=== PATIENT | female | born 1995 | race African-American/Black ===

== ENCOUNTER 2017-02-02 04:06 | Inpatient (IN) | payer OTHER ==
--- NOTE | 2017-02-01 23:01 | History & Physical ---
General Information and HPI MD Statement: I have seen and personally examined DARON SANTIAGO and documented this H&P. The patient is a 22 year old female at [39] weeks and [] days gestation who presented with a chief complaint of [repeat c/s]. Source of Information: patient Exam Limitations: no limitations History of Present Illness: 22 year old @ 39 weeks presents for repeat c/s. Pt has a prior h/o c/s x 3 and desires repeat. remarkable for late care. First visit to office was a 37 weeks. She stated that received minimal care in [place] prior to this. She has a h/o asthma as a child and uses albuterol as needed. She is anemic. She declines BTL. 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 History medical practice administrator History : 5 Para: 3 Last Menstrual Period: unknown Estimated Delivery Date: 02/10/16 Past medical practice administrator History: previous c/s x 3 Past Pregnancies Past Pregnancies: Date of Delivery: see record Medical History Neurological: NONE EENT: NONE Cardiovascular: NONE Respiratory: asthma Gastrointestinal: NONE Hepatic: NONE Renal: NONE Musculoskeletal: NONE Psychiatric: anxiety Endocrine: NONE Blood Disorders: NONE (??), IMMUNE DEFICIENCY Cancer(s): NONE IMPROVEMENT MANAGER/Reproductive: NONE Other Medical Hx: tobacco use THC use obesity Surgical History Pertinent Surgical History: Review of Systems Review of Systems Constitutional: Reports: no symptoms. Cardiovascular: Reports: no symptoms. Respiratory: Reports: no symptoms. GI: Reports: no symptoms. Genitourinary: Reports: see HPI. Musculoskeletal: Reports: no symptoms. Skin: Reports: no symptoms. Neurological/Psychological: Reports: no symptoms. Hematologic/Endocrine: Reports: no symptoms. Immunologic/Allergic: Reports: no symptoms. Exam & Diagnostic Data Obstetric Exam Wgt Gained During : unknown Pelvimetry: unknown Dilation (cm): 0 Effacement (%): 0 Station: 0 Membranes: intact Fluid: unknown Fundal Height (cm): 40 Multiple Gestation? No Contractions: na Infant #1 - FHR Baseline: 120 Category: 1 Estimated Weight: 7.2 Presentation: vertex Patient for Induction? No Physical Exam General Appearance Alert, Oriented X3, Cooperative, No Acute Distress Skin No Rashes, No Breakdown, No Significant Lesion HEENT Atraumatic, PERRLA, EOMI, Mucous Membr. moist/pink Neck Supple, No JVD, No thryomegaly, +2 Carotid Pulse wo Bruit, No LAD Cardiovascular Regular Rate, Normal S1, Normal S2, No Murmurs Lungs Clear to Auscultation, Normal Air Movement Abdomen Normal Bowel Sounds, Soft, No Tenderness, No Hepatospenomegaly, No Masses, gravid Neurological Normal Gait, Normal Speech, Strength at 5/5 X4 Ext, Normal Tone, Sensation Intact, Cranial Nerves 3-12 NL, Reflexes 2+ Extremities No Clubbing, No Edema Labs Blood Type & Rh: A pos Antibody Screen: neg Hct/Hgb & Platelets #1: 9.4, 30.4, 305 Hct/Hgb & Platelets #2: na Rubella: imm VDRL #1: neg VDRL #2: na HbsAg: neg HIV #1: neg HIV #2 na 1 Hr PG: na Group B Strep: pos Initial Ultrasound: 37.5w, 41%, 5'15". post plac, limited anatomy unremarkable Anatomy Ultrasound: na Genetic Testing: na Assessment/Plan Assessment/Plan: 22 year old female @ 39 weeks with h/o prior cs x 3. plan repeat c/s. r/b/a including risk of bleeding, infection, injury to other organs, hysterectomy, need for additional procedures should complication occur, TTN. Questions answered and desires to proceed. Baseline hgb a little low. Will have 2 units on hold. Tobacco and marijuana cessation discussed. SS consult as needed. As Ranked By This Provider Problem List: 1. 2. History of - section Core Measures/Miscellaneous Venous Thromboembolism VTE Risk Factors: / VTE Contraindications: No Contraindications VTE Diagnosis: No Beta Amrita Is Beta Amrita a Home Med? No Antibiotics Is Patient on Antibiotics? No Attending MD Review Statement Attending Statement Attending MD Statement: examined this patient, discussed with family
[~2017-02-02] VITALS: Ht 170.2 cm; Wt 122.9 kg
[~2017-02-02 04:06] MED LIST: AMOXICILLIN500 M1 PO; IBUPROFEN800 M1 PO; KEFLEX500 M1 PO; PERCOCET 5-3251 EACH PO; REGLAN10 MG PO; TYLENOL #31 TAB PO
[2017-02-02 04:40] LABS: ABSOLUTE BASOPHIL COUNT 0 /CUMM (0.0-0.2); ABSOLUTE EOSINOPHIL COUNT 0 /CUMM (0.0-0.7); ABSOLUTE GRANULOCYTE CT 8.4 /CUMM (1.4-6.5); ABSOLUTE LYMPH COUNT 2.2 /CUMM (1.2-3.4); ABSOLUTE MONOCYTE COUNT 0.8 /CUMM (0.10-0.60); BASOPHIL % 0.3 % (0.0-2.0); EOSINOPHIL % 0.4 % (0-5); GRANULOCYTE % 73.5 % (42.2-75.2); HEMATOCRIT 31.2 % (37-47); MEAN CORPUSCULAR HGB 28.5 PG (27.0-31.0); MEAN CORPUSCULAR VOLUME 86.5 FL (81.0-99.0); MEAN PLATELET VOLUME 8.4 FL (7.4-10.4); PLATELET COUNT 324 /CUMM (130-400); RBC DISTRIBUTION WIDTH 14.3 % (11.5-14.5); RED BLOOD CELL CT 3.61 /CUMM (4.20-5.40); WHITE BLOOD CELL COUNT 11.5 /CUMM (4.8-10.8)
--- NOTE | 2017-02-02 09:06 | Operative Report ---
Operative/Inv Procedure Report Surgery Date: 02/02/17 Name of Procedure: Repeat Low Transverse C/Section (#4) Pre-Operative Diagnosis: h/o prior delivery 3 Obesity History of marijuana use Tobacco use Unreliable/late care Post-Operative Diagnosis: Same and nuchal cord Window of the lower uterine segment Estimated Blood Loss: 650 mL Surgeon/Cnc Router Operator: ARMEN CONDE DO. Giovani Bermudez MD Anesthesia: block, none (spinal with a Astramorph) IV Fluids: 1600 mL preop and intraoperative Urine Output: 75 mL of clear urine yellow urine Drains: Isidro catheter Specimens: 7 lbs. 4 oz. female infant delivered at 08 11 on 02/02/2017 with scores of 8, 9, 9 Nuchal cord Marginal cord insertion Complications: None Condition: Good Operative Indication: 22 year old female @ 39 weeks with h/o prior cs x 3. plan repeat c/s. remarkable for late/unreliable care. First visit to [facility] office was a 37 weeks. She stated that received minimal care in [place] prior to this. No records are available for review. She has a h/o asthma as a child and uses albuterol as needed. She is anemic. She declines BTL.r/b/a including risk of bleeding, infection, injury to other organs, hysterectomy, need for additional procedures should complication occur, TTN. Questions answered and desires to proceed. Operative/Procedure Note Note: The patient was taken to the operative operating room where anesthesia was obtained without difficulty. She was placed in the dorsal supine position with a left lateral tilt. She was then prepared and draped in usual sterile fashion. A Pfannenstiel skin incision was made over her pre-existing scar and carried down to the fascia with the scalpel as well as with the Bovie. Moderate adhesions of the subcutaneous cutaneous tissues and to the fascia. Fascia was incised with the Bovie an incision was extended bilaterally with Sanchez scissors as well as with the Bovie. The inferior aspect of the fascial incision was tented up with [place] clamps and rectus muscles dissected off with sharp dissection. Attention was then turned to the superior aspect of the fascial incision which was similarly tented up with [place] clamps and rectus muscles dissected off with sharp dissection. Rectus muscles were in the midline with the scalpel. Incision was then extended to the pubic symphysis with the Bovie and with gentle traction. Peritoneum was identified and entered sharply with Metzenbaum scissors. There was no obvious intra-abdominal adhesions. Bladder blade was inserted and the vesicouterine peritoneum was identified and entered sharply with Metzenbaum scissors. Incision was then extended bilaterally with scissors and a bladder flap was created with sharp dissection. As noted to have a very thin lower uterine segment and a small "window was noted". The lower uterine segment and window was incised with a scalpel in a transverse fashion and immediate rupture of membranes was noted. Clear fluid was noted. The incision was then extended superiorly inferiorly with gentle traction. The head was delivered without difficulty. Loose nuchal cord was noted and reduced. Shoulders and the was delivered without difficulty. Good cry was noted. The was bulb suctioned and the cord was clamped and cut. was handed to the awaiting pediatric team. The placenta was then delivered with gentle traction. The uterus is exteriorized and cleared of all clots and debris. The uterine incision was reapproximated with 0 Vicryl in the running locking fashion. This noted that she had minimal uterine tissue of the lower uterine incision, it was mostly her vesicouterine peritoneum. . A very small second layer was attempted but potentially suboptimal as are was taken not to injure her bladder. Small amount of bleeding was noted the midline and the incision for which hemostasis was achieved with a single [id number] suture of 0 Vicryl. There was a small hematoma in the left aspect of the uterine incision which was observed and noted to be stable throughout the case. Posterior aspect of the uterus was irrigated. Should normal-appearing bilateral fallopian tubes and ovaries. The uterus was then replaced back into the abdomen. Gutters were cleared of all clots and debris. Uterine incision was reevaluated and noted to be hemostatic. The hematoma was also noted to be stable. Peritoneum was reapproximated with 2-0 Polysorb in a running fashion. Fascia was reapproximated with 0 Polysorb in a running fashion. Subcutaneous tissues were irrigated and small bleeders were coagulated with the Bovie. Subcutaneous tissues reapproximated 3-0 Polysorb. The skin was closed with rachael per patient request. Excellent hemostasis was noted. All sponge, lap counts and needle counts were correct 2 the patient was taken to the recovery area in stable condition. Findings: Very thin lower uterine segment," window"was noted 7 lbs. 4 oz. female infant delivered at 08 11 on 02/02/2017 with scores of 8, 9, 9 Nuchal cord Marginal cord insertion Discharge Disposition: childbirth center Additional Comments: Patient declined tubal ligation preoperatively and intraoperatively. I briefly discussed with the patient high risk of uterine rupture in future with both risk for maternal and complication. Future is not advisable. Patient desires to proceed with Mirena IUD.
[2017-02-03 01:06] VITALS: BP 124/82
[2017-02-03 08:38] LABS: ABSOLUTE BASOPHIL COUNT 0 /CUMM (0.0-0.2); ABSOLUTE EOSINOPHIL COUNT 0.1 /CUMM (0.0-0.7); ABSOLUTE GRANULOCYTE CT 7.5 /CUMM (1.4-6.5); ABSOLUTE LYMPH COUNT 2.5 /CUMM (1.2-3.4); ABSOLUTE MONOCYTE COUNT 0.7 /CUMM (0.10-0.60); BASOPHIL % 0.4 % (0.0-2.0); EOSINOPHIL % 0.6 % (0-5); GRANULOCYTE % 69.4 % (42.2-75.2); MEAN CORPUSCULAR HGB 28.1 PG (27.0-31.0); MEAN CORPUSCULAR HGB CONC 32.2 G/DL (33.0-37.0); MEAN CORPUSCULAR VOLUME 87.3 FL (81.0-99.0); MEAN PLATELET VOLUME 8.8 FL (7.4-10.4); PLATELET COUNT 237 /CUMM (130-400); RED BLOOD CELL CT 2.96 /CUMM (4.20-5.40); WHITE BLOOD CELL COUNT 10.9 /CUMM (4.8-10.8)
[2017-02-03 10:14] LABS: HEMATOCRIT 25.8 % (37-47)
--- NOTE | 2017-02-03 23:41 | PN- OBGYN ---
Surgical Brief Attending Note Brief Attending Note: Late entry, the patient was seen early this morning at approximately 9:30 The patient is out of bed and in a chair. Spencer catheter just removed. The patient states she has not yet ambulated except for to the chair, she has not yet voided, she is tolerating pain and by mouth. Due to the positive THC she is pumping and dumping and expresses that she would like to check her urine regularly perhaps weekly to see if it has cleared in order to nurse her . Lochia's is appropriate. Vital signs are stable Vital Signs Date Time Temp Pulse Resp B/P B/P Pulse O2 O2 Flow FiO2 Mean Ox Delivery Rate 02/03 1940 98 Room Air 02/03 0106 124/82 Laboratory Tests 02/03/17 0755: CBC w Diff NO MAN DIFF REQ, RBC 2.96 L, MCV 87.3, MCH 28.1, RDW 14.0, MPV 8.8, Gran % 69.4, Lymphocytes % 23.2, Monocytes % 6.4, Eosinophils % 0.6, Basophils % 0.4, Absolute Granulocytes 7.5 H, Absolute Lymphocytes 2.5, Absolute Monocytes 0.7 H, Absolute Eosinophils 0.1, Absolute Basophils 0, PUBS MCHC 32.2 L Microbiology Date/Time Procedure - Status Source Growth 02/02 926 Urine Culture - CAN URINE ROUT Cancelled: Cancelled via OE: NEED URINE FROM SPENCER Orders Procedure Date/time Status TRC EVALUATION (GEN) 02/03 1828 Active CBC WITHOUT DIFFERENTIAL 02/03 0600 Complete SOCIAL WORK CONSULT 02/03 UNK Active Regular Diet 02/02 L Active Nothing by Mouth 02/02 B Complete CULTURE,URINE 02/02 0943 Active Pathway - chart 02/02 926 Active Misc Message 02/02 926 Active Wound Care/Dressing 02/02 926 Active Vital Signs 02/02 926 Active Spencer, Insertion/Removal/Asses 02/02 926 Complete CBC: Device(s) 02/02 926 Active Activity/Ambulation 02/02 926 Active PATHOLOGY SPECIMEN 02/02 09 Active LEUKOCYTE POOR (PACKED CELLS) 02/02 0502 Active Pathway - chart 02/02 421 Active Patient Data 02/02 421 Active Vital Signs 02/02 421 Active OB: Monitoring 02/02 421 Active CBC: Device(s) 02/02 421 Active Activity/Ambulation 02/02 421 Active CULTURE,URINE 02/02 421 Active URINE DRUGS OF ABUSE 02/02 421 Complete URINALYSIS 02/02 421 Complete CBC WITHOUT DIFFERENTIAL 02/02 421 Complete TYPE & SCREEN (NOT X-MATCH) 02/02 421 Active Childbirth Center Pt Data 02/02 UNK Active Admit to inpatient 02/02 UNK Active VTE Mechanical Prophylaxis 02/02 UNK Active Procedure Prep 02/02 UNK Active Spencer, Insertion/Removal/Asses 02/02 UNK Active Activity/Ambulation 02/02 UNK Active PHARMACY COMMUNICATION FORM 02/02 UNK Active Gen. exam: No acute distress Abdomen is appropriately tender to palpation, incision is clean dry and intact, fundus is firm at umbilicus Extremities are without calf tenderness or edema. Impression and plan: This patient is postop day 1 status post repeat 4. I discussed with the patient the findings of a very thin lower uterine segment called a window was noted at time of her delivery. Additional pregnancies were not advised. She we discussed Mirena IUD. Additionally we'll plan routine postoperative care. gate services supervisor called me earlier today and we discussed the findings of positive THC in her urine. This was noted last year however, DCF had declined referral. A second referral was placed to [facility] and they agreed to evaluate her case. The plan will be to keep the patient until postop day 4 for further social science professor.
--- NOTE | 2017-02-04 12:21 | PN- OBGYN ---
Surgical Brief Attending Note Brief Attending Note: PT C/O RASH ON LEGS. HAS HAD IT BEFORE. TAKES BENADRYL WHEN ACTS UP. STATES THAT HAD MORE PAIN/CRAMPING LAST NIGHT WITH INCREASED LOCHIA BUT NOT SATURATING A PAD Q HOUR. OTHERWISE, AMBULATING, VOIDING,TOLERATING PAIN AND PO. PUMPING AND DUMPING UNTIL THC CLEARED FROM SYSTEM. WOULD LIKE TO BE RECHECKED PRIOR TO DISCHARGE. PER , PLAN TO KEEP PT UNTIL POD 4 FOR DCF EVAL. ALSO, PT HAD TRC EVAL AND REQUESTING ALBUTEROL UPON DISCHARGE. STATES THAT LEFT ALL HER RX IN [place] ([facility]), BUT "LEFT IN A HURRY" DUE TO ?RELATIONSHIP ISSUES AND WILL NOW BE LIVING IN [place]. VSSAF EXAM: OBESE , NAD UP AND AMBULATING, CARING FOR INFANT ABDOMEN: OBESE, EDEMA OF PANNUS NOTED INC: C/D/I/ NEO IN PLACE EXT: NO CALF TENDERNESS NO EDEMA. A FEW PIN .5 TO 10MM LESIONS ON LOWER EXTREMITIES. A/P POD 2. S/P REPEAT C/S X 4. STABLE. PLAN ROUTINE POSTOP CARE. PLAN REPEAT UTOX PRIOR TO DISCHARGE PER PT REQUEST AND HOLD UNTIL POD 4 FOR FURTHER LIGHTNING PROTECTION INSTALLER EVALUATION. WILL PRESCRIBE ALBUTEROL FOR DISCHARGE. ANEMIA. WILL REPLACE UPON DISCHARGE. REVIEWED CARE OF INCISION.
--- NOTE | 2017-02-05 10:29 | PN- OBGYN ---
Surgical Brief Attending Note Brief Attending Note: POD#3 pt is resting in bed, c/o she felt incisional pain and swollen. tolerate diet, void without difficulties. flatus (+) PE: VSS CV RRR Lungs CTA VB/L Abdomen: soft, nontender, uterus firm, fundus at umbulical level, incision staple in place, D/C/I Ext: edema(+), DCT (-). a/p: 22yo, s/p RLTCS, POD#3 1. pt is in stable condition, will trial of lasix for edema. precautions given, she understand. 2. encourage ambulation. 3. DCF will see pt tomorrow before discharge
[2017-02-06] MEDS ORDERED: PERCOCET 5-3251 EACH PO (09:45)
[2017-02-06] MEDS ORDERED: IBUPROFEN800 M1 PO (09:45)
[2017-02-06] MEDS ORDERED: VENTOLIN HFA18 GM INH (09:45)
--- NOTE | 2017-02-15 13:12 | Discharge Summary ---
Visit Information Visit Dates Admission Date: 02/02/17 Discharge Date: 02/06/17 Hospital Course Course Attending Physician: ARMEN CONDE DO Primary Care Physician: PATIENT HAS NO PRIMARY CARE DR Hospital Course: 22 year old female @ 39 weeks with h/o prior cs x 3. plan repeat c/s. remarkable for late/unreliable care. First visit to [facility] office was a 37 weeks. She stated that received minimal care in [place] prior to this. No records were available for review. remarkable for short interval between pregnancies, prior c/section, h/o asthma as a child and uses albuterol as needed. She is anemic. She declines BTL. She had a + utox for THC on admission. Her surgery was uncomplicated. course similarly uncomplicated. She was discharged to home on post op day 3 in good condition. dietary services manager was notified prior to discharge of +THC and appropriate action taken. I had noted a very thin lower uterine segment "window" at time of delivery and had discussed at length with patient postoperatively my concerns regarding future pregnancies, risk of uterine rupture, and subsequent maternal and risk and consequences. She desires Mirena IUD . Complications: none Allergies: Coded Allergies: NO KNOWN ALLERGIES (unknown 02/02/17) Significant Procedures: Repeat low transverse section Pertinent Lab Results: Vital Signs Date Time Temp Pulse Resp B/P B/P Pulse O2 O2 Flow FiO2 Mean Ox Delivery Rate 02/03 2000 Room Air Room Air 02/03 1940 98 Room Air 02/03 0106 124/82 Disposition Summary Disposition Principal Diagnosis: Term, history of previous delivery Additional Diagnosis: asthma Discharge Disposition: home or self care Discharge Instructions General Discharge Information Code Status: Full Code Patient's Diet: regular Patient's Activity: pelvic rest, no heavy lifting x 6 weeks Follow-Up Instructions/Appts: call for follow up apt in office at 2 and 6 weeks . Call for severe pain, fever, heavy vaginal bleeding. Call with concerns. Medications at Discharge Discharge Medications: Start taking the following new medications: Albuterol Sulfate (Ventolin Hfa) 90 MCG HFA.AER.AD 2 Puff Inhale through mouth EVERY 4 HOURS NEEDED as needed for SHORTNESS OF BREATH Qty = 1 No Refills Comments: Last Taken: 02/06/17 Time: 9:40 AM Ibuprofen (Ibuprofen) 800 MG TABLET 800 Milligram ORAL EVERY SIX HOURS NEEDED as needed for UTERINE CRAMPING Qty = 90 No Refills Comments: Last Taken: 02/06/17 Time: 9:40 AM Oxycodone HCl/Acetaminophen (Percocet 5-325 MG Tablet) 5 MG-325 MG TABLET 1 Tablet ORAL EVERY 4 HOURS NEEDED as needed for PAIN SCALE 4-6 (MODERATE ) Qty = 30 No Refills Comments: Last Taken: 02/06/17 Time: 7:45 AM Copies To: ARMEN CONDE DO Attending MD Review Statement Documenting Attending: ARMEN CONDE DO
== END 2017-02-06 11:30 | DRG 540 ==
LOC: GNO 04:06
PROVIDERS: ADMIT Obstetrics & Gynecology
PROC: 10D00Z1 Extraction of Products of Conception, Low, Open Approach (ICD-10-PCS; principal; 2017-02-02)
DX: O34.211 Maternal care for low transverse scar from previous cesarean delivery (principal); N85.8 Other specified noninflammatory disorders of uterus; O69.81X0 Labor and delivery complicated by cord around neck, without compression, not applicable or unspecified; O69.89X0 Labor and delivery complicated by other cord complications, not applicable or unspecified; O34.593 Maternal care for other abnormalities of gravid uterus, third trimester; Z3A.39 39 weeks gestation of pregnancy; Z37.0 Single live birth; O99.334 Smoking (tobacco) complicating childbirth; F17.210 Nicotine dependence, cigarettes, uncomplicated; O99.324 Drug use complicating childbirth; F12.90 Cannabis use, unspecified, uncomplicated; O99.214 Obesity complicating childbirth
CPT/HCPCS: GNOS; 80307; 81003; 86920; 87086; 88307; J0131; J1200; J1650; J1885; J3490; J7120

== ENCOUNTER 2017-02-12 17:15 | Inpatient (IN) | payer OTHER ==
[~2017-02-12] VITALS: Ht 170.2 cm; Wt 117.9 kg
[~2017-02-12 17:15] MED LIST changes: +VENTOLIN HFA18 GM INH
--- NOTE | 2017-02-12 17:17 | NUR ---
Informed waiting has been performed. PT AWARE OF 2 TO 3 HOUR WAIT
--- NOTE | 2017-02-12 17:21 | NUR ---
22 YO FEMALE SENT TO ER BY BALDO BISHOP (OBGYN) FOR HIGH BLOOD PRESSURE. PT DELIVERED VIA 1 WEEK AGO HERE AT [facility]. PTC/O HEADACHE. STATES SHE WAS AT THE OFFICE TODAY BECUASE SHE HASNT BEEN FEELING WELL AND HER PRESSURE WAS 160/110. PT CURRENTLY BREAST FEEDING.
[2017-02-12] MEDS ORDERED: FERROUS SULFAT325 M3 PO (19:04)
[2017-02-12] MEDS ORDERED: KEFLEX500 M1 PO (19:04)
--- NOTE | 2017-02-12 19:11 | ED GENERAL ADULT ---
History of Present Illness General Chief Complaint: General Adult Stated Complaint: MOJGAN BECKFORD LUKASZXENA FOR ?PRE-ECLAMPSIA Source: patient, old records Exam Limitations: no limitations Vital Signs & Intake/Output Vital Signs & Intake/Output Vital Signs Date Time Temp Pulse Resp B/P B/P Pulse O2 O2 Flow FiO2 Mean Ox Delivery Rate 02/12 2338 97.9 69 20 157/73 98 Room Air / 2318 98.0 73 16 152/96 98 Room Air / 2233 92 16 158/88 97 Room Air 02/12 2228 98 / 2158 98.9 70 20 162/73 96 Room Air 02/12 2129 69 126/76 02/13 2128 62 16 130/73 98 Room Air 02/12 2019 99.0 70 143/104 02/12 1947 170/102 02/12 1721 98.7 86 18 142/88 98 Room Air ED Intake and Output 02/13 0000 02/12 1200 Intake Total Output Total Balance Patient 260 lb Weight Weight Reported by Patient Measurement Method Allergies Coded Allergies: NO KNOWN ALLERGIES (unknown 02/02/17) Reconcile Medications Albuterol Sulfate (Ventolin Hfa) 90 MCG HFA.AER.AD 2 PUF INH Q4 HRS NEEDED PRN SHORTNESS OF BREATH Cephalexin (Keflex) 500 MG CAPSULE 1 CAP PO BID ANTIBIOTIC (Reported) Ferrous Sulfate 325 MG (65 MG IRON) TABLET 1 TAB PO DAILY SUPPLEMENT ( Reported) Ibuprofen 800 MG TABLET 800 MG PO Q6P PRN UTERINE CRAMPING Oxycodone HCl/Acetaminophen (Percocet 5-325 MG Tablet) 5 MG-325 MG TABLET 1 TAB PO Q4P PRN PAIN SCALE 4-6 (MODERATE) Triage Note: 22 YO FEMALE SENT TO ER BY BALDO BISHOP (OBGYN) FOR HIGH BLOOD PRESSURE. PT DELIVERED VIA 1 WEEK AGO HERE AT [facility]. PTC/O HEADACHE. STATES SHE WAS AT THE OFFICE TODAY BECUASE SHE HASNT BEEN FEELING WELL AND HER PRESSURE WAS 160/110. PT CURRENTLY BREAST FEEDING. Triage Nurses Notes Reviewed? yes : No Patient currently breastfeeds: Yes HPI: Patient was sent in from her coronary care unit nurse office to rule out preeclampsia. Patient is one week post . Has been having ongoing pain at the site of her . Patient feels that the area is infected. Patient was started on Keflex 3 days ago. Patient had a follow-up appointment today and her blood pressure was very elevated. Patient has a throbbing frontal headache which she says is constant. She rates it as a 6 out of 10. There is no radiation. There are no aggravating or mitigating factors. Patient states that she does have a history of headaches and this is similar to her prior headaches. Patient denies any blurry vision. There is no nausea or vomiting. Past History Travel History Traveled to [place] past 21 day No Medical History Any Pertinent Medical History? 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 No Review of Systems Review of Systems Constitutional: Reports: no symptoms. EENTM: Reports: no symptoms. Respiratory: Reports: no symptoms. Cardiovascular: Reports: no symptoms. GI: Reports: no symptoms. Genitourinary: Reports: no symptoms. Musculoskeletal: Reports: no symptoms. Skin: Reports: no symptoms. Neurological/Psychological: Reports: see HPI, headache. Hematologic/Endocrine: Reports: no symptoms. Immunologic/Allergic: Reports: no symptoms. All Other Systems: Reviewed and Negative Physical Exam Physical Exam General Appearance: well developed/nourished, alert, awake Head: atraumatic, normal appearance Eyes: Bilateral: PERRL, EOMI. Ears, Nose, Throat: normal pharynx, normal ENT inspection, hearing grossly normal Neck: normal inspection, supple, full range of motion Respiratory: normal breath sounds, chest non-tender, no respiratory distress, lungs clear Cardiovascular: regular rate/rhythm, normal peripheral pulses Gastrointestinal: normal bowel sounds, soft, non-tender, SITE HEALING WELL, NO SIGNS OF INFECTION Back: normal inspection, normal range of motion Extremities: pedal edema Reflexes: 1+: ankle (R), ankle (L). 2+: bicep (R), bicep (L), tricep (L), tricep (L), knee (R), knee (L). Lymphatic: no anterior cervical dorothy Core Measures ACS in differential dx? No CVA/TIA Diagnosis: No Severe Sepsis Present: No Septic Shock Present: No Progress Differential Diagnoses I considered the following diagnoses in my evaluation of the patient: [ Preeclampsia, hypertension, infection] Plan of Care: Orders Procedure Date/time Status Regular Diet 02/13 B Active URINE TOTAL PROT/CREAT RATIO 02/13 06 Complete MAGNESIUM 02/13 06 Complete UREA NITROGEN 02/13 06 Complete URIC ACID 02/13 0546 Complete URINALYSIS 02/13 0546 Complete LDH (LACT ACID DEHYDROGENASE) 02/13 05 Complete CREATININE 02/13 05 Complete CBC WITHOUT DIFFERENTIAL 02/13 05 Complete TRNSFRASE ASPART AMINO 02/13 05 Complete TRNSFRAS ALANINE AMINO 02/13 05 Complete Isidro, Insertion/Removal/Asses 02/13 0023 Active VTE Mechanical Prophylaxis 02/13 UNK Active Vital Signs 02/13 UNK Active Activity/Ambulation 02/13 UNK Active Patient Data 02/12 2343 Active Admit to inpatient 02/12 2250 Active Add-on Test (ER Only) 02/12 2249 Active Add-on Test (ER Only) 02/12 2140 Active URINE DRUGS OF ABUSE 02/12 210 Complete Straight Cath 02/12 2038 Active URINE TOTAL PROT/CREAT RATIO 02/12 2038 Complete URINALYSIS 02/12 203 Complete URIC ACID 02/12 192 Complete MAGNESIUM 02/12 191 Complete COMPREHENSIVE METABOLIC PANEL 02/12 191 Complete CBC WITHOUT DIFFERENTIAL 02/12 191 Complete Intake & Output 02/12 1859 Active Current Medications Sig/Liam Start time Last Medication Dose Stop Time Status Admin Magnesium Sulfate 40 GM Q20H 02/13 0330 AC 02/13 (Mag Sulfate 02/13 2329 0100 Infusion 40MG/ML) Water 1,000 ML (Sterile Water) Acetaminophen 325 MG Q6P PRN 02/13 0315 AC (Tylenol) Oxycodone/ 1 TAB Q6P PRN 02/13 0315 AC 02/13 Acetaminophen 0404 (Percocet) Lactated Ringer's 1,000 ML .[id number] 02/13 0100 AC 02/13 (Lactated Ringers) 0100 Magnesium Sulfate 4 GM ONCE ONE 02/12 2045 CAN (Mag Sulfate in D5) 02/13 0044 Dextrose/Water 100 ML (D5W) Magnesium Sulfate 2 GM ONCE ONE 02/13 2000 CAN (Mag Sulfate in D5) 02/12 235 Dextrose/Water 100 ML (D5W) Laboratory Tests 02/13/17 0600: BUN Cancelled, Creatinine Cancelled, BUN/Creatinine Ratio Cancelled, Magnesium Cancelled, Ur Random Creatinine 32.6, U Random Total Protein 19 H, Protein/ Creatinin Ratio 0.5 H 02/13/17 0600: Estimated GFR > 60, Uric Acid 4.0, Magnesium 4.3 H, AST 20, ALT 35, Lactate Dehydrogenase 467, CBC w Diff NO MAN DIFF REQ, RBC 3.21 L, MCV 85.9, MCH 28.3, RDW 15.0 H, MPV 7.6, Gran % 52.3, Lymphocytes % 36.0, Monocytes % 8.8, Eosinophils % 2.4, Basophils % 0.5, Absolute Granulocytes 4.2, Absolute Lymphocytes 2.9, Absolute Monocytes 0.7 H, Absolute Eosinophils 0.2, Absolute Basophils 0, PUBS MCHC 32.9 L, Urinalysis LIGHT H, Urine Color PINK H, Urine Clarity HAZY H, Urine pH 6.5, Ur Specific [place] 1.020, Urine Protein NEG, Urine Ketones NEG, Urine Nitrite NEG, Urine Bilirubin NEG, Urine Urobilinogen 0.2, Ur Leukocyte Esterase NEG, Ur Microscopic SEDIMENT EXAMINED, Urine RBC 50- 75 H, Urine WBC 1-3 H, Ur Epithelial Cells FEW, Urine Bacteria FEW H, Urine Mucus FEW, Urine Hemoglobin LARGE H, Urine Glucose NEG 02/12/172105: Ur Random Creatinine 124.7, U Random Total Protein 6, Protein/Creatinin Ratio 0.0 02/12/172105: Urine Opiates Screen > 4000.00 H, Methadone Screen < 40, Barbiturate Screen < 60, Ur Phencyclidine Scrn < 6.00, Amphetamines Screen < 100, U Benzodiazepines Scrn < 85, Urine Cocaine Screen < 50, Urine Cannabis Screen 79.10 H, Urine Color YEL, Urine Clarity CLEAR, Urine pH 6.5, Ur Specific [place] 1.020, Urine Protein NEG, Urine Ketones NEG, Urine Nitrite NEG, Urine Bilirubin NEG, Urine Urobilinogen 1.0, Ur Leukocyte Esterase NEG, Ur Microscopic SEDIMENT EXAMINED, Urine RBC 5-10 H, Ur Epithelial Cells MOD H, Urine Bacteria RARE H, Urine Hemoglobin MOD H, Urine Glucose NEG 02/12/171920: Anion Gap 9, Estimated GFR > 60, BUN/Creatinine Ratio 17.5, Glucose 91, Uric Acid 3.7, Calcium 8.9, Magnesium 1.8, Total Bilirubin 0.4, AST 24, ALT 37, Alkaline Phosphatase 62, Total Protein 6.6, Albumin 3.4 L, Globulin 3.2, Albumin/Globulin Ratio 1.1, CBC w Diff NO MAN DIFF REQ, RBC 3.45 L, MCV 86.3, MCH 28.1, RDW 15.0 H, MPV 8.1, Gran % 60.6, Lymphocytes % 31.7, Monocytes % 5.1 , Eosinophils % 2.0, Basophils % 0.6, Absolute Granulocytes 5.5, Absolute Lymphocytes 2.9, Absolute Monocytes 0.5, Absolute Eosinophils 0.2, Absolute Basophils 0.1, PUBS MCHC 32.5 L Diagnostic Imaging: Viewed by Me: CT Scan. Discussed w/RAD: CT Scan. Radiology Impression: PATIENT: DARON SANTIAGO PRESENT AGE: 22 PATIENT ACCOUNT NO: [id number] : 93 LOCATION: [facility] ORDERING PHYSICIAN: EDUARDO AKHTAR MD SERVICE DATE: 02/12/17 EXAM TYPE: CAT - CTA CHEST-PULMONARY EMBOLISM EXAMINATION: CT ANGIOGRAM OF THE CHEST WITH AND WITHOUT CONTRAST (CT PULMONARY ANGIOGRAM FOR PE) CLINICAL INFORMATION: Chest pain and dyspnea status post . COMPARISON: None TECHNIQUE: Prior to contrast administration, noncontrast localization images were obtained. Subsequently, multidetector volumetric imaging was performed from the thoracic inlet to below the diaphragms following the administration of 95 mL Optiray 320 intravenous contrast. No contrast reaction reported. Sagittal, coronal, and MIP oblique sagittal reformatted images were obtained on the CT workstation, uploaded to PACS, and reviewed. Total exam dose-length product 536 mGy-cm. FINDINGS: QUALITY OF STUDY/CONTRAST BOLUS: Satisfactory to the level of the segmental branches. PULMONARY ARTERIES: No central or segmental pulmonary emboli. THORACIC AORTA: No aneurysm or dissection. LUNG: The central airways are patent. There is a 0.4 cm subpleural right lower lobe pulmonary nodule, series 2 image 277. No additional pulmonary nodules. No consolidation. PLEURA: No pleural effusion or pneumothorax. MEDIASTINUM: Normal heart size. No pericardial effusion. No hilar or mediastinal lymphadenopathy. No evidence of septal bowing or right heart strain. CHEST WALL/AXILLA: No axillary or internal mammary lymphadenopathy. OSSEOUS STRUCTURES: No acute or suspicious osseous abnormality. UPPER ABDOMEN: Unremarkable. No reflux of contrast into the hepatic veins to suggest elevated right heart pressures. IMPRESSION: 1. No pulmonary embolism or other acute intrathoracic abnormality. 2. 0.4 cm right lower lobe pulmonary nodule. In a patient this age, this is typically benign. VTE: negative DICTATED BY: LEIDY ALVARADO MD DATE/TIME DICTATED:02/12/172308 HOTEL OR MOTEL RECEPTIONIST: KALEE DATE/TIME TRANSCRIBED:02/12/172308 CONFIDENTIAL, DO NOT COPY WITHOUT APPROPRIATE AUTHORIZATION. <Electronically signed in Other Vendor System> SIGNED BY: LEIDY ALVARADO MD 02/12/17 8407 Initial ED EKG: NSR, no ST T wave changes Departure Departure Disposition: STILL A PATIENT Condition: Guarded Clinical Impression Primary Impression: Pre-eclampsia Referrals: PATIENT HAS NO PRIMARY CARE DR (PCP/Family) Departure Forms: Customer Survey General Discharge Information Admission Note Spoke With: MONICA HE MD Documentation of Exam: Documentation of any treatments & extenuating circumstances including Concerns Regarding Discharge (functional status, medication knowledge or non-compliance, living conditions, etc.) that warrant an admission rather than observation: [IV MAGNESIUM, FOLLOW UP CT SCAN] Critical Care Note Critical Care Note Critical Care Time: mins: (45 MIN)
[2017-02-12 19:48] LABS: ABSOLUTE BASOPHIL COUNT 0.1 /CUMM (0.0-0.2); ABSOLUTE EOSINOPHIL COUNT 0.2 /CUMM (0.0-0.7); ABSOLUTE GRANULOCYTE CT 5.5 /CUMM (1.4-6.5); ABSOLUTE LYMPH COUNT 2.9 /CUMM (1.2-3.4); ABSOLUTE MONOCYTE COUNT 0.5 /CUMM (0.10-0.60); BASOPHIL % 0.6 % (0.0-2.0); GRANULOCYTE % 60.6 % (42.2-75.2); HEMATOCRIT 29.8 % (37-47); MEAN CORPUSCULAR HGB 28.1 PG (27.0-31.0); MEAN CORPUSCULAR HGB CONC 32.5 G/DL (33.0-37.0); MEAN CORPUSCULAR VOLUME 86.3 FL (81.0-99.0); MEAN PLATELET VOLUME 8.1 FL (7.4-10.4); PLATELET COUNT 433 /CUMM (130-400); RED BLOOD CELL CT 3.45 /CUMM (4.20-5.40)
--- NOTE | 2017-02-12 21:00 | NUR ---
4 INCH WELL HEALING SUPRAPUBIC INCISION CLEANED AND BACITRACIN AND DRESSING APPLIED
--- NOTE | 2017-02-12 21:08 | NUR ---
STRAIGHT CATHED PER ORDER AND 100CC CLEAR YELLOW URINE OBTAINED WITH STERILE TECHNIQUE, TRIO SENT TO LAB. MAG SULFATE 6G ADMINISTERED PER ORDER PER PRE-ECLAMPSIA CRISIS PROTOCOL
--- NOTE | 2017-02-12 21:35 | NUR ---
MEDICATED PER eMAR
--- NOTE | 2017-02-12 22:27 | NUR ---
RT AT BEDSIDE FOR TX
--- NOTE | 2017-02-12 22:34 | NUR ---
OBGYN AT BEDSIDE FOR EVALUATION CONSULT. MANUAL BP 158/88 SINUS 80'S-90'S ON CM WITHOUT ECTOPY. REPORTS NO RELIEF IN HEADACHE
--- NOTE | 2017-02-12 23:00 | NUR ---
PT TO AND FROM CT VIA STRETCHER
--- NOTE | 2017-02-12 23:16 | NUR ---
MAG SULFATE 2G GTT OVER ONE HOUR PER ORDER BY DR AKHTAR. PLAN FOR ADMISSION TO [facility]
--- NOTE | 2017-02-12 23:20 | CT SCAN REPORT ---
EXAMINATION: CT ANGIOGRAM OF THE CHEST WITH AND WITHOUT CONTRAST (CT PULMONARY ANGIOGRAM FOR PE) CLINICAL INFORMATION: Chest pain and dyspnea status post . COMPARISON: None TECHNIQUE: Prior to contrast administration, noncontrast localization images were obtained. Subsequently, multidetector volumetric imaging was performed from the thoracic inlet to below the diaphragms following the administration of 95 mL Optiray 320 intravenous contrast. No contrast reaction reported. Sagittal, coronal, and MIP oblique sagittal reformatted images were obtained on the CT workstation, uploaded to PACS, and reviewed. Total exam dose-length product 536 mGy-cm. FINDINGS: QUALITY OF STUDY/CONTRAST BOLUS: Satisfactory to the level of the segmental branches. PULMONARY ARTERIES: No central or segmental pulmonary emboli. THORACIC AORTA: No aneurysm or dissection. LUNG: The central airways are patent. There is a 0.4 cm subpleural right lower lobe pulmonary nodule, series 2 image 277. No additional pulmonary nodules. No consolidation. PLEURA: No pleural effusion or pneumothorax. MEDIASTINUM: Normal heart size. No pericardial effusion. No hilar or mediastinal lymphadenopathy. No evidence of septal bowing or right heart strain. CHEST WALL/AXILLA: No axillary or internal mammary lymphadenopathy. OSSEOUS STRUCTURES: No acute or suspicious osseous abnormality. UPPER ABDOMEN: Unremarkable. No reflux of contrast into the hepatic veins to suggest elevated right heart pressures. IMPRESSION: 1. No pulmonary embolism or other acute intrathoracic abnormality. 2. 0.4 cm right lower lobe pulmonary nodule. In a patient this age, this is typically benign. VTE: negative
--- NOTE | 2017-02-12 23:45 | NUR ---
TEMI FROM CT. DR GRAY TO PUT ADMIT ORDERS INTO COMPUTER. PT CO PRATHER.
--- NOTE | 2017-02-13 00:01 | NUR ---
BED ASSIGNMENT 318-1
--- NOTE | 2017-02-13 00:15 | NUR ---
REPORT DEANNA RN IN CBC
--- NOTE | 2017-02-13 00:23 | NUR ---
SPENCER CATH INSERTED--CLEAR LT YELLOW URINE DRAINING
--- NOTE | 2017-02-13 00:41 | History & Physical ---
General Information and HPI MD Statement: I have seen and personally examined DARON SANTIAGO and documented this H&P. The patient is a 22 year old female at [] weeks and [] days gestation who presented with a chief complaint of [ 10days, headache for 1 day. elevated BP in office]. Source of Information: patient Exam Limitations: no limitations History of Present Illness: 22yo, s/p repeat on 02/02/2017. she had limited care, she was seen in office twice before the at 39 wks. surgery was umcomplicated, she was discharged on 02/06/2017. today as per pt , she did not fell well, she has headache, came to office for evaluation. BP was 160/110mmHg, then she came to ER for evaluation. In ER , BP was 142/88,170/102,143/104, then she was given MgSO4 for presumbly preeclampsia. repeat BP after loading dose of MgSO4 was 120/70, she was admiitted for MgSO4 treatment. Allergies/Medications Allergies: Coded Allergies: NO KNOWN ALLERGIES (unknown 02/02/17) Home Med list Albuterol Sulfate (Ventolin Hfa) 90 MCG HFA.AER.AD 2 PUF INH Q4 HRS NEEDED PRN SHORTNESS OF BREATH Cephalexin (Keflex) 500 MG CAPSULE 1 CAP PO BID ANTIBIOTIC (Reported) Ferrous Sulfate 325 MG (65 MG IRON) TABLET 1 TAB PO DAILY SUPPLEMENT ( Reported) Hydrocodone/Acetaminophen (Vicodin Es 7.5-300 MG Tablet) 7.5 MG-300 MG TABLET 1 TAB PO 4 TIMES/DAY PAIN Ibuprofen 800 MG TABLET 800 MG PO Q6P PRN UTERINE CRAMPING Labetalol HCl 100 MG TABLET 100 MG PO BID HIGH BLOOD PRESSURE Compliance With Home Meds: GOOD 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 : 5 Para: 3 Last Menstrual Period: unknown Estimated Delivery Date: 02/10/16 Past shrimp trawler History: previous c/s x 3 Past Pregnancies Past Pregnancies: Date of Delivery: see record Medical History Neurological: NONE EENT: NONE Cardiovascular: NONE Respiratory: asthma Gastrointestinal: NONE Hepatic: NONE Renal: NONE Musculoskeletal: NONE Psychiatric: anxiety Endocrine: NONE Blood Disorders: NONE (??), IMMUNE DEFICIENCY 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 EENTM: Reports: no symptoms. Cardiovascular: Reports: no symptoms. Respiratory: Reports: no symptoms. GI: Reports: no symptoms. Genitourinary: Reports: see HPI. Musculoskeletal: Reports: no symptoms. Skin: Reports: no symptoms. Neurological/Psychological: Reports: headache. Hematologic/Endocrine: Reports: no symptoms. Immunologic/Allergic: Reports: no symptoms. All Other Systems: Reviewed and Negative Exam & Diagnostic Data Last 24 Hrs of Vital Signs/I&O Vital Signs Date Time Temp Pulse Resp B/P B/P Pulse O2 O2 Flow FiO2 Mean Ox Delivery Rate 02/12 2338 36.6 69 20 157/73 98 Room Air / 2318 36.7 73 16 152/96 98 Room Air / 2233 92 16 158/88 97 Room Air / 2228 98 / 2158 37.2 70 20 162/73 96 Room Air / 2129 69 126/76 06/ 2128 62 16 130/73 98 Room Air / 2019 37.2 70 143/104 /05 1947 170/102 06/05 1721 37.1 86 18 142/88 98 Room Air Intake & Output 02/13 0800 06/06 0000 06/05 1600 Intake Total Output Total Balance Patient 117.934 kg Weight Weight Reported by Patient Measurement Method Obstetric Exam Wgt Gained During : postpatum Pelvimetry: Dilation (cm): 0 () Effacement (%): 0 () Station: 0 () Membranes: unknown Fluid: unknown Fundal Height (cm): 0 () Multiple Gestation? No Contractions: Infant #1 - FHR Baseline: 0 () Category: 1 () Estimated Weight: Presentation: Patient for Induction? No Physical Exam: VSS, BP 160-120/104-70, Abdomen: soft, nontender, incision midline mild tender, D/C/I. lochia mild Ext: DCT (-) Labs Blood Type & Rh: Antibody Screen: postaprtum Hct/Hgb & Platelets #1: Hct/Hgb & Platelets #2: Rubella: VDRL #1: VDRL #2: HbsAg: HIV #1: HIV #2 1 Hr PG: Group B Strep: Initial Ultrasound: Anatomy Ultrasound: Ultrasound for EFW: Genetic Testing: Assessment/Plan Assessment/Plan: 22yo, s/p , PPD#10, HTN, possible preeclampsia 1. case discussed with Dr. Montalvo , will admit pt, continue MgSO4 for 24 hrs 2. monitor BP closely 3. RT PP care As Ranked By This Provider Problem List: 1. Pre-eclampsia Core Measures/Miscellaneous Venous Thromboembolism VTE Risk Factors: / VTE Contraindications: No Contraindications VTE Diagnosis: No Beta Amrita Is Beta Amrita a Home Med? No Antibiotics Is Patient on Antibiotics? No Attending MD Review Statement Attending Statement Attending MD Statement: examined this patient, discussed w/nursing
[2017-02-13 06:22] LABS: ABSOLUTE BASOPHIL COUNT 0 /CUMM (0.0-0.2); ABSOLUTE EOSINOPHIL COUNT 0.2 /CUMM (0.0-0.7); ABSOLUTE GRANULOCYTE CT 4.2 /CUMM (1.4-6.5); ABSOLUTE LYMPH COUNT 2.9 /CUMM (1.2-3.4); ABSOLUTE MONOCYTE COUNT 0.7 /CUMM (0.10-0.60); BASOPHIL % 0.5 % (0.0-2.0); EOSINOPHIL % 2.4 % (0-5); GRANULOCYTE % 52.3 % (42.2-75.2); HEMATOCRIT 27.6 % (37-47); MEAN CORPUSCULAR HGB 28.3 PG (27.0-31.0); MEAN CORPUSCULAR HGB CONC 32.9 G/DL (33.0-37.0); MEAN CORPUSCULAR VOLUME 85.9 FL (81.0-99.0); MEAN PLATELET VOLUME 7.6 FL (7.4-10.4); PLATELET COUNT 399 /CUMM (130-400); RED BLOOD CELL CT 3.21 /CUMM (4.20-5.40); WHITE BLOOD CELL COUNT 8.1 /CUMM (4.8-10.8)
--- NOTE | 2017-02-13 09:02 | PN- Post Delivery/GYN ---
Subjective Subjective: Feeling ok still c/o headache and back pain. Review of Systems Constitutional: Denies: chills, fever. EENTM: Denies: blurred vision, double vision, visual changes. Cardiovascular: Denies: chest pain, edema. Gastrointestinal: Denies: nausea, vomiting. Neurological/Psychological: Denies: anxiety, depressed. Objective Last 24 Hrs of Vital Signs/I&O Vital Signs Date Time Temp Pulse Resp B/P B/P Pulse O2 O2 Flow FiO2 Mean Ox Delivery Rate 02/12 2338 97.9 69 20 157/73 98 Room Air 02/12 2318 98.0 73 16 152/96 98 Room Air 02/12 2233 92 16 158/88 97 Room Air 02/13 2228 98 02/12 2158 98.9 70 20 162/73 96 Room Air 02/12 2129 69 126/76 02/13 2128 62 16 130/73 98 Room Air 02/12 2019 99.0 70 143/104 02/12 1947 170/102 02/12 1721 98.7 86 18 142/88 98 Room Air Intake & Output 02/13 1600 02/13 0800 02/13 0000 Intake Total Output Total Balance Patient 260 lb Weight Weight Reported by Patient Measurement Method Physical Exam General Appearance Alert, Oriented X3, Cooperative, No Acute Distress Skin No Rashes Abdomen Soft, No Tenderness, incision clean no erythema induration Neurological reflexes depressed Extremities No Edema Current Medications: Current Medications Sig/Liam Start time Last Medication Dose Route Stop Time Status Admin Acetaminophen 325 MG Q6P PRN 02/13 0315 AC PO Acetaminophen/ 1 TAB ONCE ONE 02/12 2145 DC 02/12 Butalbital/Caffeine PO 02/12 Albuterol Sulfate 3 ML ONCE ONE 02/12 223 DC 02/12 INH 02/12 2231 2225 Lactated Ringer's 1,000 ML .[id number] 02/13 0100 AC 02/13 IV 0100 Magnesium Sulfate 40 GM Q20H 02/13 0330 AC 02/13 Water 1,000 ML IV 02/13 2329 0100 Magnesium Sulfate 0 .STK-MED ONE 02/12 2309 DC .ROUTE Magnesium Sulfate 1 GM Q1H 02/12 2300 DC 02/12 Dextrose/Water 100 ML IV 02/13 0059 2316 Magnesium Sulfate 0 .STK-MED ONE 02/12 2050 DC .ROUTE Magnesium Sulfate 4 GM ONCE ONE 02/12 2045 CAN Dextrose/Water 100 ML IV 02/14 44 Magnesium Sulfate 6 GM ONCE ONE 02/12 2045 DC 02/12 Dextrose/Water 100 ML IV 02/12 Magnesium Sulfate 2 GM ONCE ONE 02/13 2000 CAN Dextrose/Water 100 ML IV 02/12 2359 Oxycodone/ 1 TAB Q6P PRN 02/13 0315 AC 02/13 [place]etaminophen PO 0404 Last 24 Hrs of Labs/Antony: Laboratory Tests 02/13/17599: BUN Cancelled, Creatinine Cancelled, BUN/Creatinine Ratio Cancelled, Magnesium Cancelled, Ur Random Creatinine 32.6, U Random Total Protein 19 H, Protein/ Creatinin Ratio 0.5 H 02/13/17599: Estimated GFR > 60, Uric Acid 4.0, Magnesium 4.3 H, AST 20, ALT 35, Lactate Dehydrogenase 467, CBC w Diff NO MAN DIFF REQ, RBC 3.21 L, MCV 85.9, MCH 28.3, RDW 15.0 H, MPV 7.6, Gran % 52.3, Lymphocytes % 36.0, Monocytes % 8.8, Eosinophils % 2.4, Basophils % 0.5, Absolute Granulocytes 4.2, Absolute Lymphocytes 2.9, Absolute Monocytes 0.7 H, Absolute Eosinophils 0.2, Absolute Basophils 0, PUBS MCHC 32.9 L, Urinalysis LIGHT H, Urine Color PINK H, Urine Clarity HAZY H, Urine pH 6.5, Ur Specific [place] 1.020, Urine Protein NEG, Urine Ketones NEG, Urine Nitrite NEG, Urine Bilirubin NEG, Urine Urobilinogen 0.2, Ur Leukocyte Esterase NEG, Ur Microscopic SEDIMENT EXAMINED, Urine RBC 50- 75 H, Urine WBC 1-3 H, Ur Epithelial Cells FEW, Urine Bacteria FEW H, Urine Mucus FEW, Urine Hemoglobin LARGE H, Urine Glucose NEG 02/12/172105: Ur Random Creatinine 124.7, U Random Total Protein 6, Protein/Creatinin Ratio 0.0 02/12/172105: Urine Opiates Screen > 4000.00 H, Methadone Screen < 40, Barbiturate Screen < 60, Ur Phencyclidine Scrn < 6.00, Amphetamines Screen < 100, U Benzodiazepines Scrn < 85, Urine Cocaine Screen < 50, Urine Cannabis Screen 79.10 H, Urine Color YEL, Urine Clarity CLEAR, Urine pH 6.5, Ur Specific [place] 1.020, Urine Protein NEG, Urine Ketones NEG, Urine Nitrite NEG, Urine Bilirubin NEG, Urine Urobilinogen 1.0, Ur Leukocyte Esterase NEG, Ur Microscopic SEDIMENT EXAMINED, Urine RBC 5-10 H, Ur Epithelial Cells MOD H, Urine Bacteria RARE H, Urine Hemoglobin MOD H, Urine Glucose NEG 02/12/17 1921: Anion Gap 9, Estimated GFR > 60, BUN/Creatinine Ratio 17.5, Glucose 91, Uric Acid 3.7, Calcium 8.9, Magnesium 1.8, Total Bilirubin 0.4, AST 24, ALT 37, Alkaline Phosphatase 62, Total Protein 6.6, Albumin 3.4 L, Globulin 3.2, Albumin/Globulin Ratio 1.1, CBC w Diff NO MAN DIFF REQ, RBC 3.45 L, MCV 86.3, MCH 28.1, RDW 15.0 H, MPV 8.1, Gran % 60.6, Lymphocytes % 31.7, Monocytes % 5.1 , Eosinophils % 2.0, Basophils % 0.6, Absolute Granulocytes 5.5, Absolute Lymphocytes 2.9, Absolute Monocytes 0.5, Absolute Eosinophils 0.2, Absolute Basophils 0.1, PUBS MCHC 32.5 L Imaging Findings: CT no PE or pneumonia Assessment/Plan Assessment/Plan PIH on 2G MgSO4 with absent reflexes PIH labs all normal no HEELP syndrome plan decrease MgSO4 to 1 G an hour d/c mgso4 after 24 hours Problem List: 1. Pre-eclampsia Attending MD Review Statement Attending Statement Attending MD Statement: examined this patient, discussed with family, reviewed EMR data (avail)
[2017-02-14 10:29] VITALS: BP 130/80
[2017-02-14] MEDS ORDERED: LABETALOL HCL100 M1 PO (10:40)
[2017-02-14] MEDS ORDERED: VICODIN ES 7.51 EACH PO (10:40)
--- NOTE | 2017-02-14 10:42 | PN- OBGYN ---
Surgical Brief Attending Note Brief Attending Note: HD #3 PRATHER IS BETTER, STILL NEEDING PAIN MED STRONGER THAN MOTRIN 800 TID. SOC SERVICES HERE TO TRY TO SET UP HOME SUPPORT FOR HER. AFEBRILE BP BETTER 120'S/80'S VSS ABDOMEN OBESE SOFT NONTENDER NO GUSRDING OR REBOUND INCISION CLEAN DRY INTACT PERINEUM AVGE LOCHIA BACK NO CVAT EXTR- NEG SUMMER'S STABLE HD# 3 PP PIH - S/P 24 HR MGSO4 BP WELL CONTROLLED ON LABETALOL 100 MG WILL DISCHARGE HOME F/UP IN 1 WEEK INTERNAL MED FOLLOW UP [facility] EXPERIMENTAL INVOLVED/ DCF ALSO INVOLVED Vladislav PIMENTEL MD
--- NOTE | 2017-02-22 11:50 | Discharge Summary ---
Visit Information Visit Dates Admission Date: 02/12/17 Discharge Date: 02/14/17 Hospital Course Course Attending Physician: MONICA HE MD Primary Care Physician: PATIENT HAS NO PRIMARY CARE DR Hospital Course: 22 years old,s/p repeat , day 10, she was admitted for preeclampsia on 02/12/2017. Upon admission, she had elevated blood pressure, headache, and small amount protein in the urine. During the hospital stay, patient remained in stable condition, she received magnesium sulfate treatment for 24 hours, also with she received labetalol for hypertension. Her blood pressure remained stable during the hospital stay, within the normal limits upon discharge. She tolerated diet, ambulating well, void without difficulties. On exam, abdomen soft, nontender, incision dry clean intact. Complications: Stable Allergies: Coded Allergies: NO KNOWN ALLERGIES (unknown 02/02/17) Significant Procedures: None Disposition Summary Disposition Principal Diagnosis: preeclampsia Additional Diagnosis: None Discharge Disposition: home or self care Discharge Instructions General Discharge Information Code Status: Full Code Patient's Diet: Regular Patient's Activity: As tolerated Follow-Up Instructions/Appts: Follow-up in office in 1 week Medications at Discharge Discharge Medications: Stop taking the following medications: Oxycodone HCl/Acetaminophen (Percocet 5-325 MG Tablet) 5 MG-325 MG TABLET ORAL EVERY 4 HOURS NEEDED as needed for PAIN SCALE 4-6 (MODERATE) Qty = 30 Continue taking these medications: Albuterol Sulfate (Ventolin Hfa) 90 MCG HFA.AER.AD 2 Puff Inhale through mouth EVERY 4 HOURS NEEDED as needed for SHORTNESS OF BREATH Qty = 1 Comments: Last Taken: 02/06/17 Time: 9:40 AM Ibuprofen (Ibuprofen) 800 MG TABLET 800 Milligram ORAL EVERY SIX HOURS NEEDED as needed for UTERINE CRAMPING Qty = 90 Comments: Last Taken: 02/06/17 Time: 9:40 AM Cephalexin (Keflex) 500 MG CAPSULE 1 Capsule ORAL TWICE DAILY Ferrous Sulfate (Ferrous Sulfate) 325 MG (65 MG IRON) TABLET 1 Tablet ORAL DAILY Start taking the following new medications: Labetalol HCl (Labetalol HCl) 100 MG TABLET 100 Milligram ORAL TWICE DAILY Days = 60 No Refills Comments: Last Taken: Time:1025 Hydrocodone/Acetaminophen (Vicodin Es 7.5-300 MG Tablet) 7.5 MG-300 MG TABLET 1 Tablet ORAL 4 TIMES A DAY Qty = 30 No Refills Copies To: MONICA HE MD Attending MD Review Statement Documenting Attending: MONICA HE MD
== END 2017-02-14 13:54 | DRG 561 ==
LOC: ERH 17:15 → GNO 22:50 → ERHI 22:50 → ENRESERV 23:50 → EDBEDREQSVC 02-13 00:16 → GNO 02-13 00:48
PROVIDERS: Emergency Medicine; ADMIT Obstetrics & Gynecology
DX: O13.5 Gestational [pregnancy-induced] hypertension without significant proteinuria, complicating the puerperium (principal); O99.89 Other specified diseases and conditions complicating pregnancy, childbirth and the puerperium; R51 Headache; J45.909 Unspecified asthma, uncomplicated
CPT/HCPCS: ERO; GNOS; 80307; 81001; 82570; 96374; 99291; J3475